=== PATIENT | female | born 1975 | race Caucasian/White ===

== ENCOUNTER 2020-03-19 12:59 | Emergency (ER) | payer MEDICAID ==
[~2020-03-19] VITALS: Ht 152.4 cm; Wt 52.3 kg
[~2020-03-19 12:59] MED LIST: DIPH-423 PO; EPIN0.3P8 IM; PRED50TA PO; RANI-366 PO
[2020-03-19] MEDS ORDERED: albuterol 2.5 MG/3 ML nebule NEB ONE (14:20)
[2020-03-19] MEDS ORDERED: normal saline 1000ML IV soln IVB ONE (14:20)
[2020-03-19] MEDS ORDERED: acetaminophen 325mg tablet PO ONE (14:20)
[2020-03-19] MEDS ORDERED: methylPREDNISolone sod succ 125mg/2ml vial IV ONE (14:20)
[2020-03-19] MEDS ORDERED: PRED20TA PO (15:41)
[2020-03-19] MEDS ORDERED: ALB0.5UD IH (15:53)
[2020-03-19] MEDS ORDERED: ALBU8HFA PO (15:53)
[2020-03-19 16:17] VITALS: BP 109/72
== END 2020-03-19 16:18 | disposition home or self-care (01) ==
LOC: ER 13:00
DX: J45.901 Unspecified asthma with (acute) exacerbation (principal); J02.9 Acute pharyngitis, unspecified; R09.81 Nasal congestion; R05 Cough; Z20.822 Contact with and (suspected) exposure to COVID-19; Z72.89 Other problems related to lifestyle; Z88.0 Allergy status to penicillin; Z79.899 Other long term (current) drug therapy
CPT/HCPCS: 36415; 71045; 87635; 94640; 96361; 96374; 99284; J2930; J7030; 94760; 99283

== ENCOUNTER 2020-04-01 14:18 | Emergency (ER) | payer MEDICAID ==
[~2020-04-01] VITALS: Ht 152.4 cm; Wt 53.2 kg
[~2020-04-01 14:18] MED LIST changes: +ALB0.5UD IH; +ALBU8HFA PO; +PRED20TA PO
[2020-04-01] MEDS ORDERED: ALBU8HFA PO (15:09)
[2020-04-01] MEDS ORDERED: PRED20TA PO (15:09)
[2020-04-01] MEDS ORDERED: ALBU2.5V12 NEB (15:09)
--- NOTE | 2020-04-01 15:19 | NUR ---
PT WAS SEEN AND ASSESSED BY PA BEFORE RN WAS ABLE TO ASSESS, SEE REPORT
[2020-04-01] MEDS ORDERED: ALBU18HF2 INH (15:25)
[2020-04-01 15:26] VITALS: BP 105/69
== END 2020-04-01 15:31 | disposition home or self-care (01) ==
LOC: ER 14:19
DX: J45.909 Unspecified asthma, uncomplicated (principal); Z76.0 Encounter for issue of repeat prescription; Z72.89 Other problems related to lifestyle; Z88.0 Allergy status to penicillin; Z79.899 Other long term (current) drug therapy
CPT/HCPCS: 99281; 99283

== ENCOUNTER 2020-04-20 15:18 | Emergency (ER) | payer MEDICAID ==
[~2020-04-20] VITALS: Ht 152.4 cm; Wt 54.0 kg
[~2020-04-20 15:18] MED LIST changes: -ALB0.5UD IH; +ALBU18HF2 INH; +ALBU2.5V12 NEB; -PRED20TA PO
[2020-04-20] MEDS ORDERED: dexamethasone sod phosphate 10mg/ml inj IV STA (15:46)
[2020-04-20] MEDS ORDERED: normal saline 1000ML IV soln IVB ONE (15:50)
[2020-04-20] MEDS ORDERED: albuterol 2.5 MG/3 ML nebule CONTNEB PRN (15:50)
[2020-04-20] MEDS ORDERED: magnesium 2GM in 50ml NS 50 ML IV ONE (15:55)
--- NOTE | 2020-04-20 16:23 | NUR ---
notified anoop echeverria that pt is c/o headace as per provider order tylenol 650 mg po once for headache.will follow the orders.
[2020-04-20] MEDS ORDERED: acetaminophen 325mg tablet PO ONE (16:25)
[2020-04-20 16:44] LABS: BASOPHILS # (AUTO) 0.1 X10'3 (0-0.2); BASOPHILS % (AUTO) 0.8 % (0-1); EOSINOPHILS # (AUTO) 1.8 X10'3 (0-0.9); EOSINOPHILS % (AUTO) 19.3 % (0-6); HEMATOCRIT 37.1 % (35.0-45.0); HEMOGLOBIN 12.2 g/dl (12.0-16.0); LYMPHOCYTES % (AUTO) 21.2 % (21-51); MEAN CORPUSCULAR HEMOGLOBIN 30.1 PG (27.0-31.0); MEAN CORPUSCULAR VOLUME 91.3 FL (78-98); MONOCYTES # (AUTO) 0.7 X10'3 (0-0.9); MONOCYTES % (AUTO) 7.6 % (2-12); NEUTROPHILS # (AUTO) 4.7 X10'3 (1.8-7.7); NEUTROPHILS % (AUTO) 51.1 % (42-75); PLATELET COUNT 324 X10'3 (140-440); RED BLOOD COUNT 4.06 X10'6 (4.20-5.60); RED CELL DISTRIBUTION WIDTH 15.4 % (11.5-14.5); WHITE BLOOD COUNT 9.2 X10'3 (4.5-11.0)
[2020-04-20 16:55] LABS: ALANINE AMINOTRANSFERASE 32 U/L (12-78); ALBUMIN 3.2 G/DL (3.4-5.0); ALBUMIN/GLOBULIN RATIO 0.8 (1.1-1.5); ALKALINE PHOSPHATASE 72 IU/L (46-116); ANION GAP 10 (8-16); ASPARTATE AMINO TRANSFERASE 22 U/L (10-37); BILIRUBIN,TOTAL 0.3 MG/DL (0.1-1.0); BLOOD UREA NITROGEN 12 MG/DL (7-18); BUN/CREATININE RATIO 16.7 (6.6-38.0); CALCIUM 8.8 MG/DL (8.5-10.1); CHLORIDE 104 MMOL/L (99-107); CREATININE 0.72 MG/DL (0.40-0.90); GLUCOSE 87 MG/DL (70-104); POTASSIUM 3.7 MMOL/L (3.5-5.1); SODIUM 142 MMOL/L (135-145); TOTAL CARBON DIOXIDE 28.3 MMOL/L (24-32); TOTAL PROTEIN 7.2 G/DL (6.4-8.2); eGFR 89 ML/MIN
[2020-04-20] MEDS ORDERED: albuterol 2.5 MG/3 ML nebule NEB ONE (17:40)
[2020-04-20] MEDS ORDERED: ipratropium/albuterol 3ml nebule NEB ONE (17:50)
[2020-04-20] MEDS ORDERED: ipratropium/albuterol 3ml nebule ONE (17:54)
[2020-04-20] MEDS ORDERED: BECL7.3A INH (18:09)
[2020-04-20] MEDS ORDERED: IPRA3AMP31 IH (18:09)
[2020-04-20] MEDS ORDERED: PRED10TA23 PO (18:09)
[2020-04-20] MEDS ORDERED: ALBU6.7H9 INH (18:09)
[2020-04-20 18:41] VITALS: BP 106/65
== END 2020-04-20 19:02 | disposition home or self-care (01) ==
LOC: ER 15:19
DX: J45.901 Unspecified asthma with (acute) exacerbation (principal); Z20.822 Contact with and (suspected) exposure to COVID-19; R05 Cough; F17.200 Nicotine dependence, unspecified, uncomplicated; Z87.01 Personal history of pneumonia (recurrent); Z72.89 Other problems related to lifestyle; Z88.1 Allergy status to other antibiotic agents; Z79.899 Other long term (current) drug therapy
CPT/HCPCS: 36415; 71045; 80053; 85025; 87635; 93005; 94640; 96365; 96375; 99291; C9803; J1100; J3475; J7030; 94760; 96361

== ENCOUNTER 2022-02-18 20:55 | Emergency (ER) | payer MEDICAID ==
[~2022-02-18] VITALS: Ht 152.4 cm; Wt 56.8 kg
[~2022-02-18 20:55] MED LIST changes: +ALBU6.7H14 INH; -ALBU8HFA PO; +BECL7.3A INH; +IPRA3AMP31 IH
[2022-02-18 21:04] VITALS: BP 11/84
== END 2022-02-19 02:35 | disposition left against medical advice (07) ==
LOC: ER 20:56
DX: R10.30 Lower abdominal pain, unspecified (principal); Z53.21 Procedure and treatment not carried out due to patient leaving prior to being seen by health care provider

== ENCOUNTER 2022-07-07 21:22 | Emergency (ER) | payer MEDICAID ==
[~2022-07-07] VITALS: Ht 154.9 cm; Wt 56.8 kg
[2022-07-07 21:38] VITALS: BP 119/65
== END 2022-07-07 22:40 | disposition home or self-care (01) ==
LOC: ER 21:24
DX: F15.90 Other stimulant use, unspecified, uncomplicated (principal); J44.9 Chronic obstructive pulmonary disease, unspecified; Z88.0 Allergy status to penicillin
CPT/HCPCS: 99281